=== PATIENT | female | born 1950 | race Caucasian/White ===

== ENCOUNTER 2024-01-15 16:50 | Inpatient (IN) | payer MEDICARE, OTHER ==
[2024-01-15] VITALS (7 sets, daily range): BP systolic 147; BP diastolic 75; PULSE 77–95; RESP 15–26; TEMP 97.3; O2SAT 96–99
[~2024-01-15] VITALS: Ht 147.3 cm; Wt 46.8 kg
[2024-01-15 17:24] LABS: ABG BASE EXCESS 4.1 mmol/L (-2.0-2.0); ABG HCO3 25.7 mmol/L (22.0-26.0); ABG OXYGEN SATURATION 98.7 % (94-97); ABG PH (T) 7.565 (7.350-7.450); ABG PO2 (T) 129.9 mmHg (75.0-100.0); ALLEN'S TEST POSITIVE; FCOHb 0.3 % (0.0-3.9); FHHb 1.3 % (0.0-5.0); FMetHb 0.2 % (0.0-1.5); FO2Hb 98.2 % (94-97); MODE MASK - BIPAP; PATIENT TEMPERATURE 36.7; RESPIRATORY RATE 10 b/min; TIDAL VOLUME 469 mL
[2024-01-15] MEDS: nitroGLYCERIN 0.4mg/hour patch TD ONE (17:46)
[2024-01-15 17:50] LABS: BASOPHILS # (AUTO) 0.1 X10'3 (0-0.2); BASOPHILS % (AUTO) 0.5 % (0-1); EOSINOPHILS % (AUTO) 0.2 % (0-6); HEMATOCRIT 35.2 % (35.0-45.0); LYMPHOCYTES # (AUTO) 0.7 X10'3 (1.1-4.8); LYMPHOCYTES % (AUTO) 4.9 % (21-51); MEAN CORPUSCULAR HEMOGLOBIN 31.3 PG (27.0-31.0); MEAN CORPUSCULAR HGB CONC 34.1 g/dL (33.0-36.5); MEAN CORPUSCULAR VOLUME 91.6 FL (78-98); MEAN PLATELET VOLUME 7.6 FL (7.4-10.4); MONOCYTES # (AUTO) 0.2 X10'3 (0-0.9); MONOCYTES % (AUTO) 1.6 % (2-12); NEUTROPHILS # (AUTO) 13.4 X10'3 (1.8-7.7); NEUTROPHILS % (AUTO) 92.8 % (42-75); PLATELET COUNT 313 X10'3 (140-440); RED BLOOD COUNT 3.84 X10'6 (4.20-5.60); RED CELL DISTRIBUTION WIDTH 14.4 % (11.5-14.5); WHITE BLOOD COUNT 14.4 X10'3 (4.5-11.0)
[2024-01-15 17:59] LABS: ALBUMIN 2.3 G/DL (3.4-5.0); ANION GAP 13 (8-16); BLOOD UREA NITROGEN 34 MG/DL (7-18); BUN/CREATININE RATIO 7.5 (10.0-20.0); CALCIUM 9.3 MG/DL (8.5-10.1); CHLORIDE 93 MMOL/L (99-107); CREATININE 4.53 MG/DL (0.40-0.90); GLUCOSE 114 MG/DL (70-104); MAGNESIUM 1.9 MG/DL (1.5-2.4); SODIUM 132 MMOL/L (135-145); TOTAL CARBON DIOXIDE 25.7 MMOL/L (24-32); eCRCL 7 ML/MIN; eGFR 10 ML/MIN
[2024-01-15] MEDS ORDERED: carVEDilol 12.5mg tablet PO SCH (18:15)
[2024-01-15] MEDS ORDERED: URSO300C2 (18:30)
[2024-01-15] MEDS ORDERED: PARI1CAP11 PO (18:30)
[2024-01-15] MEDS ORDERED: CLON0.3T36 PO (18:30)
[2024-01-15] MEDS ORDERED: VIT1TABL50 PO (18:30)
[2024-01-15] MEDS ORDERED: DOXA4TAB42 PO (18:30)
[2024-01-15] MEDS ORDERED: LOSA100T58 PO (18:30)
[2024-01-15] MEDS ORDERED: AMOX500C4 PO (18:30)
[2024-01-15] MEDS ORDERED: CARV25TA2 PO (18:30)
[2024-01-15] MEDS ORDERED: PRE5T PO (18:30)
[2024-01-15] MEDS ORDERED: ISOS60TA71 PO (18:30)
[2024-01-15] MEDS ORDERED: FURO80TA3 PO (18:30)
[2024-01-15] MEDS ORDERED: AMLO2.5T5 PO (18:30)
[2024-01-15] MEDS: cloNIDine 0.1 mg tablet PO STA (18:34)
[2024-01-15] MEDS: carVEDilol 12.5mg tablet PO ONE (18:34)
[2024-01-15] MEDS: furosemide 10 MG/1 ML 10ml inj IV ONE ×3 (18:59→20:14)
[2024-01-15] MEDS ORDERED: ondansetron/PF 4mg/2ml inj IV PRN (21:00)
[2024-01-15] MEDS ORDERED: potassium Cl 20 mEq SR tablet PO PRN (21:00)
[2024-01-15] MEDS ORDERED: magnesium Cl slow-release 64mg tablet PO PRN (21:00)
[2024-01-15] MEDS ORDERED: magnesium sulf-water 4G/100mL 100 ML IV PRN (21:00)
[2024-01-15] MEDS ORDERED: magnesium sulf-water 2g/50mL 50 ML IV PRN (21:00)
[2024-01-15] MEDS ORDERED: potassium Cl 40MEQ/1/2NS 520ml 520 ML IV PRN (21:00)
[2024-01-15] MEDS ORDERED: acetaminophen 325mg tablet PO PRN (21:00)
[2024-01-15] MEDS: CefTRIAXone/D5W-Rocephin 1gm 50 ML IV SCH (21:28)
[2024-01-15] MEDS: azithromycin/NS 500mg/250ml 250 ML IV SCH (22:29)
[2024-01-16] VITALS (16 sets, daily range): BP systolic 129–188; BP diastolic 63–77; PULSE 70–82; RESP 15–22; TEMP 97–98.1; O2SAT 82–100
[2024-01-16] MEDS: amLODIPine 5mg tablet PO ONE (00:54)
[2024-01-16] MEDS ORDERED: normal saline 1000ml 250 ML IV PRN (06:30)
[2024-01-16] MEDS ORDERED: normal saline 1000ml 100 ML IV PRN (06:35)
[2024-01-16 07:22] LABS: BASOPHILS % (AUTO) 0.2 % (0-1); EOSINOPHILS % (AUTO) 0.1 % (0-6); HEMATOCRIT 29.9 % (35.0-45.0); HEMOGLOBIN 10.1 g/dl (12.0-16.0); LYMPHOCYTES # (AUTO) 0.9 X10'3 (1.1-4.8); LYMPHOCYTES % (AUTO) 7.5 % (21-51); MEAN CORPUSCULAR HGB CONC 33.8 g/dL (33.0-36.5); MEAN CORPUSCULAR VOLUME 91.6 FL (78-98); MEAN PLATELET VOLUME 7.7 FL (7.4-10.4); MONOCYTES # (AUTO) 0.6 X10'3 (0-0.9); NEUTROPHILS # (AUTO) 10.3 X10'3 (1.8-7.7); NEUTROPHILS % (AUTO) 87.2 % (42-75); PLATELET COUNT 293 X10'3 (140-440); RED BLOOD COUNT 3.26 X10'6 (4.20-5.60); RED CELL DISTRIBUTION WIDTH 14.7 % (11.5-14.5); WHITE BLOOD COUNT 11.8 X10'3 (4.5-11.0)
[2024-01-16 07:34] LABS: APTT 28 SECONDS (22-32); PROTHROMBIN TIME 10.8 SECONDS (9.0-12.0)
[2024-01-16 07:51] LABS: ALANINE AMINOTRANSFERASE 37 U/L (12-78); ALBUMIN 1.9 G/DL (3.4-5.0); ALBUMIN/GLOBULIN RATIO 0.5 (1.1-1.5); ALKALINE PHOSPHATASE 195 IU/L (46-116); ANION GAP 13 (8-16); ASPARTATE AMINO TRANSFERASE 29 U/L (10-37); BILIRUBIN,TOTAL 0.6 MG/DL (0.1-1.0); BLOOD UREA NITROGEN 50 MG/DL (7-18); BUN/CREATININE RATIO 9.2 (10.0-20.0); CALCIUM 8.4 MG/DL (8.5-10.1); CHLORIDE 94 MMOL/L (99-107); CREATININE 5.45 MG/DL (0.40-0.90); GLUCOSE 147 MG/DL (70-104); MAGNESIUM 1.9 MG/DL (1.5-2.4); PHOSPHORUS 6.1 MG/DL (2.3-4.5); POTASSIUM 3.7 MMOL/L (3.5-5.1); SODIUM 132 MMOL/L (135-145); TOTAL CARBON DIOXIDE 24.8 MMOL/L (24-32); TOTAL PROTEIN 5.7 G/DL (6.4-8.2); eCRCL 6 ML/MIN; eGFR 8 ML/MIN
[2024-01-16] MEDS: K and/or MAG REPLACEMENT MC SCH (08:00)
[2024-01-16] MEDS ORDERED: PARICALCITOL 1 MCG PO SCH (08:00)
[2024-01-16 08:19] LABS: % IRON SATURATION 34 % (11-46); IRON 40 UG/DL (49-151); TOTAL IRON BINDING CAPACITY 119 UG/DL (259-388)
[2024-01-16] MEDS: predniSONE 5mg tablet PO SCH (08:40)
[2024-01-16] MEDS: doxazosin mesylate 2mg tablet PO SCH (08:40)
[2024-01-16] MEDS: furosemide 40mg tablet PO SCH (08:41)
[2024-01-16] MEDS: folic acid/vitamin B complex w/vitamin C 0.8mg tablet PO SCH (08:41)
[2024-01-16] MEDS: losartan 50mg tablet PO SCH (08:41)
[2024-01-16] MEDS: cloNIDine 0.1 mg tablet PO SCH (08:41)
[2024-01-16] MEDS: isosorbide mononitrate 30mg tab.SR.24H PO SCH (08:41)
[2024-01-16] MEDS: carVEDilol 12.5mg tablet PO SCH (08:42)
[2024-01-16 08:43] LABS: FERRITIN 1737 NG/ML (8-252)
[2024-01-16 10:38] LABS: OCCULT BLOOD STOOL POSITIVE (Neg)
[2024-01-16 14:05] LABS: C DIFF ANTIGEN NEGATIVE (NEGATIVE); C DIFF SPECIMEN=DIARRHEA? ACCEPTABLE; C DIFFICILE TOXINS A&B NEGATIVE (Neg)
[2024-01-16] MEDS: heparin 1,000 units/ml 10ml inj HE ONE ×2 (14:10→14:11)
[2024-01-16] MEDS: PARICALCITOL 1 MCG PO SCH (21:00)
[2024-01-16] MEDS: amLODIPine 2.5mg tablet PO SCH (21:47)
[2024-01-17] VITALS (7 sets, daily range): BP systolic 128–188; BP diastolic 73–83; PULSE 72–80; RESP 16–20; TEMP 97.2–98.5; O2SAT 94–98
[2024-01-17] MEDS: acetaminophen 325mg tablet PO PRN (04:41)
[2024-01-17 06:50] LABS: BASOPHILS % (AUTO) 0.4 % (0-1); EOSINOPHILS # (AUTO) 0.2 X10'3 (0-0.9); EOSINOPHILS % (AUTO) 1.6 % (0-6); HEMATOCRIT 29.5 % (35.0-45.0); HEMOGLOBIN 10.2 g/dl (12.0-16.0); LYMPHOCYTES # (AUTO) 1.5 X10'3 (1.1-4.8); LYMPHOCYTES % (AUTO) 15.6 % (21-51); MEAN CORPUSCULAR HEMOGLOBIN 31.6 PG (27.0-31.0); MEAN CORPUSCULAR HGB CONC 34.5 g/dL (33.0-36.5); MEAN CORPUSCULAR VOLUME 91.8 FL (78-98); MEAN PLATELET VOLUME 7.6 FL (7.4-10.4); MONOCYTES # (AUTO) 0.7 X10'3 (0-0.9); MONOCYTES % (AUTO) 7.8 % (2-12); NEUTROPHILS % (AUTO) 74.6 % (42-75); PLATELET COUNT 265 X10'3 (140-440); RED BLOOD COUNT 3.21 X10'6 (4.20-5.60); WHITE BLOOD COUNT 9.3 X10'3 (4.5-11.0)
[2024-01-17 06:53] LABS: APTT 22 SECONDS (22-32); INR 0.9 INR; PROTHROMBIN TIME 10.2 SECONDS (9.0-12.0)
[2024-01-17 07:08] LABS: ALANINE AMINOTRANSFERASE 29 U/L (12-78); ALBUMIN 1.8 G/DL (3.4-5.0); ALBUMIN/GLOBULIN RATIO 0.5 (1.1-1.5); ALKALINE PHOSPHATASE 164 IU/L (46-116); ANION GAP 10 (8-16); ASPARTATE AMINO TRANSFERASE 22 U/L (10-37); BILIRUBIN,TOTAL 0.5 MG/DL (0.1-1.0); BLOOD UREA NITROGEN 23 MG/DL (7-18); BUN/CREATININE RATIO 6.3 (10.0-20.0); CALCIUM 8.5 MG/DL (8.5-10.1); CHLORIDE 99 MMOL/L (99-107); CREATININE 3.65 MG/DL (0.40-0.90); GLUCOSE 96 MG/DL (70-104); MAGNESIUM 1.6 MG/DL (1.5-2.4); POTASSIUM 3.1 MMOL/L (3.5-5.1); SODIUM 134 MMOL/L (135-145); TOTAL CARBON DIOXIDE 24.9 MMOL/L (24-32); TOTAL PROTEIN 5.6 G/DL (6.4-8.2); eCRCL 9 ML/MIN; eGFR 12 ML/MIN
[2024-01-17] MEDS: azithromycin 250mg tablet PO ONE (08:49)
[2024-01-17] MEDS: potassium Cl 20 mEq SR tablet PO PRN (08:50)
[2024-01-17] MEDS: DOXYCYCLINE 100MG CAPSULE PO SCH (16:51)
[2024-01-17 17:21] LABS: HBSAG SCREEN Negative (Negative)
[2024-01-18 02:00] VITALS: BP 138/72; PULSE 73; RESP 16; TEMP 97.2; O2SAT 98
[2024-01-18 07:00] VITALS: BP 174/78; PULSE 88; RESP 16; TEMP 97.5; O2SAT 98
[2024-01-18 07:58] LABS: BASOPHILS # (AUTO) 0.1 X10'3 (0-0.2); BASOPHILS % (AUTO) 0.6 % (0-1); EOSINOPHILS # (AUTO) 0.4 X10'3 (0-0.9); EOSINOPHILS % (AUTO) 4.1 % (0-6); HEMATOCRIT 30.9 % (35.0-45.0); HEMOGLOBIN 10.7 g/dl (12.0-16.0); LYMPHOCYTES # (AUTO) 1.3 X10'3 (1.1-4.8); LYMPHOCYTES % (AUTO) 13.7 % (21-51); MEAN CORPUSCULAR HEMOGLOBIN 32.1 PG (27.0-31.0); MEAN CORPUSCULAR HGB CONC 34.5 g/dL (33.0-36.5); MEAN CORPUSCULAR VOLUME 92.9 FL (78-98); MEAN PLATELET VOLUME 7.8 FL (7.4-10.4); MONOCYTES # (AUTO) 0.7 X10'3 (0-0.9); MONOCYTES % (AUTO) 7.9 % (2-12); NEUTROPHILS % (AUTO) 73.7 % (42-75); PLATELET COUNT 287 X10'3 (140-440); RED BLOOD COUNT 3.33 X10'6 (4.20-5.60); RED CELL DISTRIBUTION WIDTH 14.5 % (11.5-14.5); WHITE BLOOD COUNT 9.4 X10'3 (4.5-11.0)
[2024-01-18 08:00] VITALS: RESP 16; O2SAT 94
[2024-01-18] MEDS: azithromycin 250mg tablet PO SCH (08:00)
[2024-01-18 08:02] LABS: APTT 27 SECONDS (22-32)
[2024-01-18 08:09] LABS: ALANINE AMINOTRANSFERASE 28 U/L (12-78); ALBUMIN 1.9 G/DL (3.4-5.0); ALBUMIN/GLOBULIN RATIO 0.5 (1.1-1.5); ALKALINE PHOSPHATASE 165 IU/L (46-116); ANION GAP 9 (8-16); ASPARTATE AMINO TRANSFERASE 21 U/L (10-37); BILIRUBIN,TOTAL 0.5 MG/DL (0.1-1.0); BLOOD UREA NITROGEN 41 MG/DL (7-18); BUN/CREATININE RATIO 7.9 (10.0-20.0); CALCIUM 8.4 MG/DL (8.5-10.1); CHLORIDE 98 MMOL/L (99-107); CREATININE 5.17 MG/DL (0.40-0.90); GLUCOSE 90 MG/DL (70-104); MAGNESIUM 1.2 MG/DL (1.5-2.4); PHOSPHORUS 3.5 MG/DL (2.3-4.5); POTASSIUM 4.4 MMOL/L (3.5-5.1); SODIUM 130 MMOL/L (135-145); TOTAL CARBON DIOXIDE 23.2 MMOL/L (24-32); TOTAL PROTEIN 5.9 G/DL (6.4-8.2); eCRCL 6 ML/MIN; eGFR 8 ML/MIN
[2024-01-18] MEDS ORDERED: DOXY-224 PO (10:25)
[2024-01-18 11:00] VITALS: BP 161/77; PULSE 80; TEMP 98.8; O2SAT 98
== END 2024-01-18 15:50 | disposition home or self-care (01) | DRG 193 ==
LOC: ER 16:51 → ED HOLD 20:59 → UNDOADMIN 20:59 → ED HOLD 21:06 → EDBEDREQ 21:58 → ED HOLD 23:25 → PCU 3S 23:25
PROVIDERS: ADMIT Internal Medicine Critical Care Medicine; ATTEND Family Medicine
PROC: 5A1D70Z Performance of Urinary Filtration, Intermittent, Less than 6 Hours Per Day (ICD-10-PCS; principal; 2024-01-16)
DX: J18.9 Pneumonia, unspecified organism (principal); E43 Unspecified severe protein-calorie malnutrition; N18.6 End stage renal disease; E87.1 Hypo-osmolality and hyponatremia; R65.10 Systemic inflammatory response syndrome (SIRS) of non-infectious origin without acute organ dysfunction; E87.3 Alkalosis; I13.2 Hypertensive heart and chronic kidney disease with heart failure and with stage 5 chronic kidney disease, or end stage renal disease; K74.3 Primary biliary cirrhosis; I50.9 Heart failure, unspecified; M81.0 Age-related osteoporosis without current pathological fracture; E88.09 Other disorders of plasma-protein metabolism, not elsewhere classified; I73.00 Raynaud's syndrome without gangrene; M35.00 Sjogren syndrome, unspecified; D63.1 Anemia in chronic kidney disease; E87.6 Hypokalemia; Z88.5 Allergy status to narcotic agent; Z88.8 Allergy status to other drugs, medicaments and biological substances; Z90.710 Acquired absence of both cervix and uterus; Z98.891 History of uterine scar from previous surgery; Z87.891 Personal history of nicotine dependence; Z99.2 Dependence on renal dialysis; Z68.21 Body mass index [BMI] 21.0-21.9, adult; Z88.2 Allergy status to sulfonamides; Z88.1 Allergy status to other antibiotic agents; Z91.041 Radiographic dye allergy status
CPT/HCPCS: 36415; 36600; 71045; 80048; 80053; 82272; 82668; 82728; 82803; 83540; 83550; 83605; 83735; 84100; 84132; 84145; 85018; 85025; 85610; 85730; 87040; 87045; 87046; 87081; 87324; 87340; 87449; 89055; 93005; 93306; 94660; 94760; 96374; 96376; 97110; 97116; 97162; 99285; A4314; A4615; E1594; G0257; G0378; J0456; J0696; J1644; J1940; J3490; J7040; J7512